=== PATIENT | male | born 1960 | race Caucasian/White ===

== ENCOUNTER 2017-11-06 18:01 | Emergency (ER) | payer BC, MEDICARE ==
--- OUTSIDE RECORDS SUMMARY | 2017-11-06 18:14 | XMS REPORT ---
:1960 External Reference #:[id number] Author Organization [facility] Address [address] [place] [address] Phone [phone] Care Team Providers Name Role Phone HCP given Primary Care Physician Unavailable Payers Type Date Identification Numbers Payment Provider Subscriber Commercial Policy Number: [id number] [place] Ind/Ppo/Hmo/Pos Brittaney Lewis Friday Group Number: [id number] [address] [address] PayID: [id number] BigelowRICARDO jones [id number] Problems Date Description Provider Status Onset: 07/26/2015 Essential hypertension Tristin Giron D.O. Active Onset: 07/26/2015 Generalized anxiety disorder Tristin Giron D.O. Active Onset: 07/26/2015 Neck pain Tristin Giron D.O. Active Onset: 07/26/2015 Migraine with typical aura Tristin Giron D.O. Active Onset: 07/26/2015 Angina pectoris Tristin Giron D.O. Active Onset: 07/26/2015 Chronic obstructive lung disease Tristin Giron D.O. Active Onset: 07/26/2015 Lipoprotein deficiency disorder Tristin Giron D.O. Active Onset: 07/26/2015 Insomnia Tristin Giron D.O. Active Onset: 10/11/2015 Low back pain Tristin Giron D.O. Active Onset: 10/11/2015 Abnormal gait Tristin Giron D.O. Active Onset: 10/11/2015 Impotence of organic origin Tristin Giron D.O. Active Family History Date Family Member(s) Problem(s) Comments Father due to complication annurism surgery () Father Hypertension Father Hypercholesterolemia Father Heart Problems Mother due to age 73 () Mother Alcoholism Mother Hypertension Mother Hypercholesterolemia Mother Heart Problems Siblings 3 Social History Type Date Description Comments Marital Status Cigarette Use Current Cigarette Smoker 1 Pack Daily ETOH Use Denies alcohol use Recreational Drug Use Former Drug User Smoking 08/23/2015 Patient is a current 38 years; currently smoker, smokes every day 1/2ppd. Was 1.5ppd; average 1 ppd=40 pack year history. Daily Caffeine Consumes on average 1 soda per day Exercise Type/Frequency Exercises sporadically Sun Exposure Does not use sunscreen Seat Belt/Car Seat Seat Belt Use - Yes Age 1st [place] 13 Years Old Sexual Hx text >10 partners in her lifetime. Allergies, Adverse Reactions, Alerts Date Description Reaction Status Severity Comments 07/26/2015 Imitrex active 07/26/2015 Cephalexin active nausea Medications Medication Date Status Form Strength Qnty SIG Indications Ordering Provider Hydrocodone-Ac 10/22/19 Active Tablets 10-325mg 180tabs 1 tab M54.2 Sopchak, etaminophen 18 every 4 Tristin, D.O. hours as needed for severe pain G43.109 Meloxicam 09/19/2017 Active Tablets 7.5mg 90tabs 1 by mouth M54.2 S[place]chak, every day Tristin, D.O. Aspirin Adult 07/30/[address] 81mg 90tabs 1 by mouth S[place]chak, Low Dose every day Tristin, D.O. Spiriva 07/24/2017 Active Aerosol 1.25mcg two Unknown Respimat /Act inhalations (5mcg) once daily (maximum: 2 inhalations per 24 hours). Ondansetron 06/06/2017 Active Tablets 4mg 10tabs 1-2 by mouth Sopchak, Dispers three times a Tristin, day as needed D.O. for nausea Ipratropium 05/13/2017 Active Solution 0.5-2.5 Inhale The Unknown [place] (3)mg/3 Contents Of 1 rol Sulfate ML Vial Via Nebulizer Q 6 H PRF SOB Breo Ellipta 04/30/2017 Active Aerosol 200-25m 90inh 1 puff once a J44.1 Sopchak, cg/Inh day; rinse Tristin, mouth after D.O. use Aerochamber 02/07/2017 Active Device 1units use as J44.9 Sopchak, Mini Aerosol directed Tristin, Chamber D.O. Tamsulosin HCL 08/06/2016 Active Capsules 0.4mg 90caps 1 By Mouth N40.0 Sopchak, Every Day Tristin, D.O. Bupropion HCL 07/08/2016 Active Tablets ER 100mg 90tabs 1 By Mouth S[place]chak, ER (SR) 12HR Every Day Tristin, D.O. Magnesium 04/29/2016 Active Tablets 1 -4 tablets Unknown daily and adjust dose as needed Nifedipine ER 04/05/2016 Active Tablets ER 90mg 90tabs Take 1 Tablet I10 Sopchak, 24HR By Mouth Tristin, Daily On An D.O. Empty Stomach For High Blood Pressure Iron 12/26/2015 Active Tablets 325(65F 90tabs 1 by mouth Sopchak, e) mg daily Tristin, D.O. Viagra 10/11/2015 Active Tablets 50mg 2tabs Take 1 tablet N52.9 Sopchak , by mouth Tristin, daily as D.O. needed for erectile dysfunction then Take 1 tablet by mouth daily as needed for erectile dysf Cialis 10/11/2015 Active Tablets 5mg 30tabs 1 by mouth N52.9 Sopchak, every day Tristin, D.O. Bystolic 08/12/2014 Active Tablets 10mg 90tabs 1 tablet by I10 Sopchak, mouth once Tristin, daily for D.O. high blood pressure G43.109 M99.01 Isosorbide Dinitrate 08/12/2014 Active Tablets 30mg 1 po daily I10 Unknown I20.9 Lorazepam 08/12/2014 Active Tablets 1mg 120tabs 1 tablet in the M99.01 Sopchak, morning, 1 Tristin, D.O. tablet in the afternoon, 2 tablet at bedtime Soma 08/12/2014 Active Tablets 350mg 90tabs 1 tab by mouth G43.109 Sopchak, three times Tristin, D.O. daily code d M54.2 G47.00 Trazodone HCL 08/12/2014 Active Tablets 100mg 180tabs 2 tabs by G47.00 Sopchak, mouth every Tristin, night at D.O. bedtime for sleep Allopurinol 08/12/2014 Active Tablets 300mg 90tabs Take 1 M10.9 Sopchak , Tablet By Tristin, Mouth Every D.O. Day as Directed, For Gout Prevention Lisinopril 08/12/2014 Active Tablets 40mg 90tabs Take One I10 Sopchak, Tablet By Tristin, Mouth Every D.O. Morning For High Blood Pressure Paxil 08/12/2014 Active Tablets 20mg 270tabs 3 By Mouth M99.01 Sopzainabk, Nightly Tristin, D.O. Proair HFA 08/12/2014 Active Aerosol 108(90B 8.5units 1-2 Puffs M99.01 Sopzainabk, ase) Four Times A Tristin, mcg/Act Day as D.O. Needed 4 Inhalers Of 8.5GM Each Atorvastatin Active Tablets 10mg Take One Unknown Calcium Tablet By Mouth Every Day Oxycodone HCL 10/07/2017 - Hx Tablets 10mg 45tabs 1 tablets by M54.2 Silcoff, 10/21/2017 mouth up to Lucas, three times M.D. a day as needed for severe pain G43.109 Tramadol HCL ER 09/19/2017 - Hx Tablets ER 100mg 30tabs 1 by M54.2 Sopchak, (Biphasic) 10/07/2017 24HR mouth Tristin, D.O. every day G43.109 Oxycodone HCL 07/25/2017 - Hx Tablets 10mg 6tabs take 1 to 2 Sopchak, 07/28/2017 tablets by Tristin, D.O. mouth every 6 hours for breakthrough pain maximum daily dose of 6 per day Prednisone 04/18/2017 - Hx Tablets 10mg 10tabs 2 tabs for 3 J44 Sopchak , 04/25/2017 days then 1 tab .1 Tristin, D.O. for 4 days Azithromycin 04/18/2017 - Hx Tablets 250mg 6tabs take 2 tablets J44 Sopchak, 04/23/2017 by mouth one .1 Tristin, D.O. time on the first day then take 1 tablet by mouth daily for 4 days Hydrocodone-Acet 10/15/2016 - Hx Tablets 10-325m 180tabs 1 tab every 4 M54 Sopzainabk, aminophen 09/19/2017 g hours as needed .2 Tristin, D.O. for severe pain G43.109 Gabapentin 09/30/2016 - Hx Capsules 100mg 90caps 1 tabs by M54.17 Mack, 12/16/2016 mouth Tristin, D.O. three times a day Oxycodone-Acet 09/30/2016 - Hx Tablets 10-325mg 120tabs 1 by mouth M54.2 Sopzainabk, aminophen 10/15/2016 every 8 Tristin, D.O. hours as needed G43.109 Colcrys 09/13/2016 - Hx Tablets 0.6mg 60tabs take 2 M10.071 Sopzainabk, 09/30/2016 immediately Tristin, then 1 1 hour D.O. later. then next day take 1 twice a day. Buspirone 10/25/2015 - Hx Tablets 7.5mg 60tabs 1 cap by M99.01 Mack, HCL 05/25/2016 mouth twice a Tristin, day D.O. Bupropion 10/10/2015 - Hx Tablets ER 100mg 90tabs 1 by mouth Mack, HCL ER (SR) 12/12/2015 12HR every day Tristin, D.O. Hydrocodone- 12/07/2014 - Hx Tablets 10-325mg 120tabs 1 by mouth M54.2 Mack, Acetaminophe 09/30/2016 four-5 times Tristin, n a day as D.O. needed for chronic pain G43.109 Nifedipine ER 08/12/2014 - Hx Tablets ER 90mg 90tabs 1qd-take one I10 Rachelk, Osmotic 04/05/2016 24HR tablet by Tristin, D.O. Release mouth every day Simvastatin 08/12/2014 - Hx Tablets 40mg take one E78.6 Unknown 12/12/2015 tablet by mouth every day for high cholesterol Symbicort 08/12/2014 - Hx Aerosol 160-4.5 30.6gm inhale 2 puffs M99.01 Mack, 04/30/2017 mcg/Act by mouth twice Tristin, D.O. a day gargle after use Wellbutrin SR 08/12/2014 - Hx Tablets ER 100mg 30tabs 1 by mouth Rachelk, 10/10/2015 12HR daily Tristin, D.O. Medications Administered in Office Medication Date Status Form Strength Qnty SIG Indications Ordering Provider Toradol 15MG. Administered Injection Hektor, 018 MICHELLE Marte SC/Im Administered Injection Hektor, Injections 018 MICHELLE Marte Toradol 15MG. Administered Injection Sopchak, 018 Tristin, D.O. SC/Im Administered Injection Sopchak, Injections 018 Tristin, D.O. Immunizations CPT Code Status Date Vaccine Lot # [id number] Given 12/17/2016 Influenza Virus Vaccine, Quadrivalent, Split, [id number] Preservative Free [id number] Given 12/26/2015 Influenza Virus Vaccine, Quadrivalent, Split, [id number] Preservative Free Vital Signs Date Vital Result Comment 10/21/2017 BP Systolic 142 mmHg BP Diastolic 82 mmHg 10/07/2017 BP Systolic 142 mmHg BP Diastolic 78 mmHg Weight 215.00 lb 09/19/2017 BP Systolic 140 mmHg BP Diastolic 80 mmHg Weight 206.00 lb 07/30/2017 BP Systolic 128 mmHg BP Diastolic 80 mmHg Weight 209.00 lb with sneakers 07/25/2017 BP Systolic 122 mmHg BP Diastolic 68 mmHg Weight 213.00 lb 06/06/2017 BP Systolic 124 mmHg BP Diastolic 80 mmHg Weight 218.00 lb with sneakers 04/30/2017 BP Systolic 114 mmHg BP Diastolic 74 mmHg Weight 207.00 lb 04/18/2017 BP Systolic 98 mmHg BP Diastolic 52 mmHg BP Systolic Recheck 98 mmHg w/automatic cuff BP Diastolic Recheck 45 mmHg w/automatic cuff Heart Rate 88 /min Body Temperature 98.5 F Weight 215.00 lb with sneakers 02/14/2017 BP Systolic 130 mmHg BP Diastolic 82 mmHg Height 71 inches 5'11" with shoes Weight 211.00 lb with shoes BMI (Body Mass Index) 29.4 kg/m2 12/17/2016 BP Systolic 142 mmHg BP Diastolic 88 mmHg Weight 208.00 lb with sneakers 11/01/2016 BP Systolic 138 mmHg BP Diastolic 82 mmHg Weight 207.00 lb w/shoes 09/30/2016 BP Systolic 168 mmHg BP Diastolic 90 mmHg Weight 207.50 lb 09/13/2016 BP Systolic 122 mmHg BP Diastolic 60 mmHg Weight 214.00 lb with shoes 08/06/2016 BP Systolic 150 mmHg BP Diastolic 80 mmHg Weight 216.00 lb 07/23/2016 BP Systolic 130 mmHg BP Diastolic 88 mmHg Height 71.75 inches 5'11.75" w/shoes Weight 204.00 lb w/shoes BMI (Body Mass Index) 27.9 kg/m2 06/11/2016 BP Systolic 120 mmHg BP Diastolic 54 mmHg Weight 216.00 lb 04/30/2016 BP Systolic 138 mmHg BP Diastolic 78 mmHg Weight 202.00 lb w/shoes 02/07/2016 BP Systolic 144 mmHg BP Diastolic 71 mmHg Heart Rate 83 /min Height 72 inches 6'0" w/shoes Weight 209.00 lb w/shoes BMI (Body Mass Index) 28.3 kg/m2 12/26/2015 BP Systolic 119 mmHg BP Diastolic 71 mmHg Heart Rate 76 /min Weight 207.00 lb with sneakers 10/25/2015 BP Systolic 112 mmHg BP Diastolic 60 mmHg 10/11/2015 BP Systolic 138 mmHg BP Diastolic 90 mmHg Weight 194.00 lb with sneakers 08/23/2015 BP Systolic 106 mmHg BP Diastolic 66 mmHg Heart Rate 70 /min 07/26/2015 BP Systolic 134 mmHg BP Diastolic 88 mmHg Height 72.25 inches 6'0.25" with sneakers Weight 192.00 lb with sneakers BMI (Body Mass Index) 25.9 kg/m2 Results Test Date Test Result H/L Range Note Slide Review 05/02/2017 Slide Review (SEE NOTE) 1, 2 Blood Culture 05/02/2017 Blood Culture Aerobic NO GROWTH: FINAL <SEE 1 , 3 NOTE> Blood Culture Anaerobic NO GROWTH: FINAL <SEE NOTE> 1, 4 Protime 05/02/2017 Protime 11.7 seconds Low 12.0-14.4 1 Inr 0.9 0.9-1.1 1, 5 Blood Culture 05/02/2017 Blood Culture Aerobic NO GROWTH: FINAL <SEE NOTE> 1, 6 Blood Culture Anaerobic NO GROWTH: FINAL <SEE NOTE> 1, 7 Ua RFX Micro & Culture II 05/02/2017 Urine Color YELLOW Yellow 1 Urine Clarity CLEAR Clear 1 Urine Glucose - Dipstick NEGATIVE mg/dL Negative 1 Urine Bilirubin - Dipstick NEGATIVE Negative 1 Urine Ketone TRACE mg/dL High Negative 1 Urine Specific [place] 1.025 1.010-1.030 1 Urine Blood NEGATIVE Negative 1 Urine PH 6.0 Low 6.5-7.5 1 Urine Protein - Dipstick TRACE mg/dL Negative 1 Urine Urobilinogen - Dipstick 0.2 E.U./dL 0.2-1.0 1 Urine Nitrite - Dipstick NEGATIVE Negative 1 Urine Leuk Esterase NEGATIVE Negative 1 Source: URINE, CLEAN CAT <SEE NOTE> 1, 8 Comprehensive Metabolic Panel 05/02/2017 Glucose 92 mg/dL 74-106 1 BUN 25 mg/dL High 7-18 1 Creatinine 1.0 mg/dL 0.6-1.3 1 Glom Filtration Rate, Estimate >60 mL/min >60 1 If >60 mL/min >60 1, 9 BUN/Creat 25.0 ratio 1 Sodium 142 mmol/L 136-145 1 Potassium 4.4 mmol/L 3.5-5.1 1 Chloride 109 mmol/L High 98-107 1 Carbon Dioxide 26 mmol/L 21-32 1 Anion Gap 7 mEq/L Low 8-16 1 Calcium 8.7 mg/dL 8.5-10.1 1 Total Protein 6.3 g/dL Low 6.4-8.2 1 Albumin 3.1 g/dL Low 3.4-5.0 1 Globulin 3.2 g/dL 1.9-4.3 1 Alb/Glob 1.0 ratio 1 Bilirubin,Total 0.1 mg/dL Low 0.2-1.0 1 Sgot/Ast 8 U/L Low 15-37 1, 10 SGPT/Alt 22 U/L 12-78 1 Alkaline Phosphatase 75 U/L 45-117 1 Laboratory test finding 05/02/2017 Lipase 183 U/L 56-289 1 CBS W/Automated Diff 05/02/2017 White Blood Count 12.1 K/uL High 3.4-10.5 1 Red Blood Count 4.12 M/uL Low 4.20-5.80 1 Hemoglobin 12.8 gm/dL 12.8-17.0 1 Hematocrit 39.9 % 38.0-48.0 1 Mean Cell Volume 96.8 fl High 80.0-96.0 1, 11 Mean Corpuscular HGB 31.1 pg 27.0-33.0 1 Mean Corpuscular HGB Conc 32.1 g/dL 31.7-36.0 1 Platelet Count 374 K/uL High 155-360 1 Red Cell Distri Width SD 53.1 fl High 36-51 1 Red Cell Distri Width %CV 15.4 % 11.6-15.8 1 Mean Platelet Volume 9.6 fL 6.6-10.6 1 Neut% 72.7 % 33.0-73.0 1 Lymph % 15.5 % Low 20.0-42.0 1 [place] % 10.8 % High 0.0-10.0 1 Eo% 0.9 % 0.0-6.6 1 Bas% 0.1 % 0.0-1.1 1 Neut# 8.77 K/uL High 1.8-7.0 1 Lymph # 1.87 K/uL 1.0-4.0 1 [place] # 1.30 K/uL High 0.0-0.8 1 Eos # 0.11 K/uL 0.0-0.5 1 Baso # 0.01 K/uL 0.0-0.1 1 Lactic Acid 05/02/2017 Lactic Acid 0.9 mmol/L 0.4-1.9 1 Lab Reflex >2.0 for Sepsis? Y 1 Ua RFX Micro & Culture II 04/29/2017 Urine Color YELLOW Yellow 12 Urine Clarity CLEAR Clear 12 Urine Glucose - Dipstick NEGATIVE mg/dL Negative 12 Urine Bilirubin - Dipstick NEGATIVE Negative 12 Urine Ketone NEGATIVE mg/dL Negative 12 Urine Specific [place] 1.025 1.010-1.030 12 Urine Blood NEGATIVE Negative 12 Urine PH 5.5 Low 6.5-7.5 12 Urine Protein - Dipstick TRACE mg/dL Negative 12 Urine Urobilinogen - Dipstick 0.2 E.U./dL 0.2-1.0 12 Urine Nitrite - Dipstick NEGATIVE Negative 12 Urine Leuk Esterase NEGATIVE Negative 12 Source: URINE, CLEAN CAT <SEE NOTE> 12, 13 Arterial Blood Gas 04/20/2017 Arterial Blood Gas pH 7.37 7.35-7.45 14 Arterial Blood Gas Pco2 44 mmHg 35-45 14 Arterial Blood Gas Po2 67 mmHg Low 80-105 14 ABG Hco3 25 mEq/L 22-26 14 ABG Base Excess -1 mEq/L -2-2 14 ABG O2 Saturation 94 % 90-99 14 Allens Test Performed? YES 14 Arterial Blood Gas Type ROOM AIR 14 Arterial Blood Gas Fio2 21 % 20-101 14 Arterial Blood Gas Site R.RAD.ART. 14 Influenza A/B Antigen 04/20/2017 Influenza A Antigen Negative (Negative) 14 Influenza B Antigen Negative (Negative) 14, 15 Legionella Culture 04/20/2017 Legionella Culture No Legionella sp 14, 16 <SEE NOTE> Laboratory test 04/20/2017 Legionella Urinary Negative Negative 14, 17 finding Antigen Blood Culture 04/20/2017 Blood Culture NO GROWTH: FINAL 18, 19 Aerobic <SEE NOTE> Blood Culture Anaerobic NO GROWTH: FINAL <SEE NOTE> 18, 20 Arterial Blood Gas 04/19/2017 Arterial Blood Gas pH 7.29 Low 7.35-7.45 21 Arterial Blood Gas Pco2 53 mmHg High 35-45 21 Arterial Blood Gas Po2 142 mmHg High 80-105 21 ABG Hco3 25 mEq/L 22-26 21 ABG Base Excess -2 mEq/L -2-2 21 ABG O2 Saturation 99 % 90-99 21 Allens Test Performed? YES 21 Arterial Blood Gas Type OXYGEN 21 Arterial Blood Gas L/M 4 L/MIN 0-20 21 Arterial Blood Gas Del. OXYMASK 21 Arterial Blood Gas Site L.RAD.ART. 21 Comprehensive Metabolic Panel 04/19/2017 Glucose 133 mg/dL High 74-106 22 BUN 32 mg/dL High 7-18 22 Creatinine 1.3 mg/dL 0.6-1.3 22 Glom Filtration Rate, Estimate 60 mL/min >60 22 If >60 mL/min >60 22, 23 BUN/Creat 24.6 ratio 22 Sodium 134 mmol/L Low 136-145 22 Potassium 4.1 mmol/L 3.5-5.1 22 Chloride 100 mmol/L 98-107 22 Carbon Dioxide 27 mmol/L 21-32 22 Anion Gap 7 mEq/L Low 8-16 22 Calcium 8.9 mg/dL 8.5-10.1 22 Total Protein 7.9 g/dL 6.4-8.2 22 Albumin 3.2 g/dL Low 3.4-5.0 22 Globulin 4.7 g/dL High 1.9-4.3 22 Alb/Glob 0.7 ratio 22 Bilirubin,Total 0.2 mg/dL 0.2-1.0 22 Sgot/Ast 18 U/L 15-37 22 SGPT/Alt 24 U/L 12-78 22 Alkaline Phosphatase 112 U/L 45-117 22 Laboratory test finding 04/19/2017 CK 190 U/L 39-308 22 Troponin-I 0.023 ng/mL 22, 24 CBS W/Automated Diff 04/19/2017 White Blood Count 11.4 K/uL High 3.4-10.5 22 Red Blood Count 4.32 M/uL 4.20-5.80 22 Hemoglobin 13.4 gm/dL 12.8-17.0 22 Hematocrit 40.7 % 38.0-48.0 22 Mean Cell Volume 94.2 fl 80.0-96.0 22 Mean Corpuscular HGB 31.0 pg 27.0-33.0 22 Mean Corpuscular HGB Conc 32.9 g/dL 31.7-36.0 22 Platelet Count 253 K/uL 155-360 22 Red Cell Distri Width SD 47.6 fl 36-51 22 Red Cell Distri Width %CV 14.3 % 11.6-15.8 22 Mean Platelet Volume 9.5 fL 6.6-10.6 22 Neut% 86.1 % High 33.0-73.0 22 Lymph % 4.6 % Low 20.0-42.0 22 [place] % 9.2 % 0.0-10.0 22 Eo% 0.0 % 0.0-6.6 22 Bas% 0.1 % 0.0-1.1 22 Neut# 9.81 K/uL High 1.8-7.0 22 Lymph # 0.53 K/uL Low 1.0-4.0 22 [place] # 1.05 K/uL High 0.0-0.8 22 Eos # 0.00 K/uL 0.0-0.5 22 Baso # 0.01 K/uL 0.0-0.1 22 Slide Review 04/19/2017 Slide Review (SEE NOTE) 22, 25 Lactic Acid 04/19/2017 Lactic Acid 0.9 mmol/L 0.4-1.9 22 Lab Reflex >2.0 for Sepsis? Y 22 CBS W/Automated Diff 12/01/2016 White Blood Count 7.7 K/uL 3.4-10.5 26 Red Blood Count 4.49 M/uL 4.20-5.80 26 Hemoglobin 14.4 gm/dL 12.8-17.0 26 Hematocrit 42.5 % 38.0-48.0 26 Mean Cell Volume 94.7 fl 80.0-96.0 26 Mean Corpuscular HGB 32.1 pg 27.0-33.0 26 Mean Corpuscular HGB Conc 33.9 g/dL 31.7-36.0 26 Platelet Count 172 K/uL 150-400 26 Red Cell Distri Width SD 48.2 fl 36-51 26 Red Cell Distri Width %CV 14.5 % 11.6-15.8 26 Mean Platelet Volume 10.2 fL 6.6-10.6 26 Neut% 70.6 % 33.0-73.0 26 Lymph % 20.5 % 20.0-42.0 26 [place] % 6.9 % 0.0-10.0 26 Eo% 1.6 % 0.0-6.6 26 Bas% 0.4 % 0.0-1.1 26 Neut# 5.40 K/uL 1.8-7.0 26 Lymph # 1.57 K/uL 1.0-4.0 26 [place] # 0.53 K/uL 0.0-0.8 26 Eos # 0.12 K/uL 0.0-0.5 26 Baso # 0.03 K/uL 0.0-0.1 26 Urine Drug Screen Inhouse 09/30/2016 Ua Cocaine - Ua Opiates - Ua Amphetamines - Urine Methanphetamines - Urine Benzodiazepines QN [place] + Urine Oxycodone QL - Laboratory test finding 09/19/2016 Uric Acid 3.9 mg/dL Low 4.4-7.6 CBC Auto Diff 09/19/2016 White Blood Count 10.0 10^3/uL 3.5-10.8 Red Blood Count 4.83 10^6/uL 4.0-5.4 Hemoglobin 15.1 g/dL 14.0-18.0 Hematocrit 46 % 42-52 Mean Corpuscular Volume 95 fL High 80-94 Mean Corpuscular Hemoglobin 31 pg 27-31 Mean Corpuscular HGB Conc 33 g/dL 31-36 Red Cell Distribution Width 16 % High 10.5-15 Platelet Count 207 10^3/uL 150-450 Mean Platelet Volume 9 um3 7.4-10.4 Abs Neutrophils 7.0 10^3/uL 1.5-7.7 Abs Lymphocytes 1.9 10^3/uL 1.0-4.8 Abs Monocytes 0.8 10^3/uL 0-0.8 Abs Eosinophils 0.2 10^3/uL 0-0.6 Abs Basophils 0.1 10^3/uL 0-0.2 Abs Nucleated RBC 0 10^3/uL Granulocyte % 70.0 % 38-83 Lymphocyte % 19.3 % Low 25-47 Monocyte % 7.9 % 1-9 Eosinophil % 1.7 % 0-6 Basophil % 1.1 % 0-2 Nucleated Red Blood Cells % 0 Laboratory test finding 09/19/2016 C Reactive Protein 1.28 mg/L < 5.00 27 Erythrocyte Sed Rate 18 mm/Hr 0-20 Comprehensive Metabolic Panel 07/31/2016 Glucose 117 mg/dL High 74-106 28 BUN 9 mg/dL 7-18 28 Creatinine 1.3 mg/dL 0.6-1.3 28 Glom Filtration Rate, Estimate 60 mL/min >60 28 If >60 mL/min >60 28, 29 BUN/Creat 6.9 ratio 28 Sodium 142 mmol/L 136-145 28 Potassium 3.7 mmol/L 3.5-5.1 28 Chloride 107 mmol/L 98-107 28 Carbon Dioxide 28 mmol/L 21-32 28 Anion Gap 7 mEq/L Low 8-16 28 Calcium 8.3 mg/dL Low 8.5-10.1 28 Total Protein 7.2 g/dL 6.4-8.2 28 Albumin 3.8 g/dL 3.4-5.0 28 Globulin 3.4 g/dL 1.9-4.3 28 Alb/Glob 1.1 ratio 28 Bilirubin,Total 0.2 mg/dL 0.2-1.0 28 Sgot/Ast 8 U/L Low 15-37 28, 30 SGPT/Alt 19 U/L 12-78 28 Alkaline Phosphatase 101 U/L 45-117 28 Laboratory test finding 07/31/2016 CK 72 U/L 39-308 28 Troponin-I < 0.015 ng/mL 28, 31 CBS W/Automated Diff 07/31/2016 White Blood Count 10.7 K/uL High 3.4-10.5 28 Red Blood Count 4.42 M/uL 4.20-5.80 28 Hemoglobin 14.3 gm/dL 12.8-17.0 28 Hematocrit 41.1 % 38.0-48.0 28 Mean Cell Volume 93.0 fl 80.0-96.0 28 Mean Corpuscular HGB 32.4 pg 27.0-33.0 28 Mean Corpuscular HGB Conc 34.8 g/dL 31.7-36.0 28 Platelet Count 276 K/uL 150-400 28 Red Cell Distri Width SD 48.5 fl 36-51 28 Red Cell Distri Width %CV 14.6 % 11.6-15.8 28 Mean Platelet Volume 9.6 fL 6.6-10.6 28 Neut% 71.7 % 33.0-73.0 28 Lymph % 17.9 % Low 20.0-42.0 28 [place] % 7.5 % 0.0-10.0 28 Eo% 2.6 % 0.0-6.6 28 Bas% 0.3 % 0.0-1.1 28 Neut# 7.64 K/uL High 1.8-7.0 28 Lymph # 1.91 K/uL 1.0-4.0 28 [place] # 0.80 K/uL 0.0-0.8 28 Eos # 0.28 K/uL 0.0-0.5 28 Baso # 0.03 K/uL 0.0-0.1 28 Slide Review 07/31/2016 Slide Review (SEE NOTE) 28, 32 Laboratory test finding 07/31/2016 NT-proBNP 205.0 pg/mL High <125 28 Connective Tissue Panel 06/14/2016 Anti-Nuclear Antibody 0.8 U 33 Cyclic Citrullinated Peptide <15.6 U 34 Interpretation See Comment 35 Laboratory test finding 06/14/2016 Rheumatoid Factor <15 IU/mL <15 36 Erythrocyte Sed Rate 10 mm/Hr 0-20 C Reactive Protein < 1.00 mg/L < 5.00 37 CBC Auto Diff 06/14/2016 White Blood Count 7.2 10^3/uL 3.5-10.8 Red Blood Count 4.61 10^6/uL 4.0-5.4 Hemoglobin 14.3 g/dL 14.0-18.0 Hematocrit 43 % 42-52 Mean Corpuscular Volume 94 fL 80-94 Mean Corpuscular Hemoglobin 31 pg 27-31 Mean Corpuscular HGB Conc 33 g/dL 31-36 Red Cell Distribution Width 15 % 10.5-15 Platelet Count 201 10^3/uL 150-450 Mean Platelet Volume 9 um3 7.4-10.4 Abs Neutrophils 5.3 10^3/uL 1.5-7.7 Abs Lymphocytes 1.1 10^3/uL 1.0-4.8 Abs Monocytes 0.5 10^3/uL 0-0.8 Abs Eosinophils 0.1 10^3/uL 0-0.6 Abs Basophils 0.1 10^3/uL 0-0.2 Abs Nucleated RBC 0.01 10^3/uL Granulocyte % 74.5 % 38-83 Lymphocyte % 15.7 % Low 25-47 Monocyte % 7.2 % 1-9 Eosinophil % 1.5 % 0-6 Basophil % 1.1 % 0-2 Nucleated Red Blood Cells % 0.1 Comp Metabolic Panel 06/14/2016 Sodium 138 mmol/L 133-145 Potassium 4.7 mmol/L 3.5-5.0 Chloride 101 mmol/L 101-111 Co2 Carbon Dioxide 32 mmol/L 22-32 Anion Gap 5 mmol/L 2-11 Glucose 109 mg/dL High 70-100 Blood Urea Nitrogen 22 mg/dL 6-24 Creatinine 1.17 mg/dL 0.67-1.17 BUN/Creatinine Ratio 18.8 8-20 Calcium 9.6 mg/dL 8.6-10.3 Total Protein 6.6 g/dL 6.4-8.9 Albumin 4.1 g/dL 3.2-5.2 Globulin 2.5 g/dL 2-4 Albumin/Globulin Ratio 1.6 1-3 Total Bilirubin 0.20 mg/dL 0.2-1.0 Alkaline Phosphatase 83 U/L 34-104 Alt 15 U/L 7-52 Ast 13 U/L 13-39 Egfr Non- 64.3 >60 Egfr 82.6 >60 38 Laboratory test finding 01/15/2016 Point of Care Glucose 120 mg/dL High 74 -106 39 Laboratory test finding 10/25/2015 Ferritin 41.0 ng/mL 24-336 Iron & Iron Binding 10/25/2015 Iron 47 g/dL Low 50-212 Capacity Unsaturated Iron Binding 293 g/dL Total Iron Binding Capacity 340 g/dL 250-450 % Iron Saturation 14 % Low 15-55 Retic Count 10/25/2015 Retic Count 1.3 % 0.5-1.5 Corrected Retic Count 1.2 % 0.5-1.5 Maturation Factor Retic 1.0 Retic Index 1.20 Mean Retic Volume 116.3 Immature Retic Fraction 0.46 RBC Retic Count 4.14 10^6/uL Low 4.6-6.2 Hematocrit for Retic CNT 40 % Low 42-52 Laboratory test finding 10/25/2015 Magnesium 2.1 mg/dL 1.9-2.7 CBC Auto Diff 10/25/2015 White Blood Count 6.4 10^3/uL 3.5-10.8 Red Blood Count 4.14 10^6/uL 4.0-5.4 Hemoglobin 13.3 g/dL Low 14.0-18.0 Hematocrit 40 % Low 42-52 Mean Corpuscular Volume 98 fL High 80-94 Mean Corpuscular Hemoglobin 32 pg High 27-31 Mean Corpuscular HGB Conc 33 g/dL 31-36 Red Cell Distribution Width 14 % 10.5-15 Platelet Count 191 10^3/uL 150-450 Mean Platelet Volume 9 um3 7.4-10.4 Abs Neutrophils 3.9 10^3/uL 1.5-7.7 Abs Lymphocytes 1.6 10^3/uL 1.0-4.8 Abs Monocytes 0.7 10^3/uL 0-0.8 Abs Eosinophils 0.1 10^3/uL 0-0.6 Abs Basophils 0.1 10^3/uL 0-0.2 Abs Nucleated RBC 0.03 10^3/uL Granulocyte % 60.6 % 38-83 Lymphocyte % 25.0 % 25-47 Monocyte % 11.1 % High 1-9 Eosinophil % 2.3 % 0-6 Basophil % 1.0 % 0-2 Nucleated Red Blood Cells % 0.4 Comp Metabolic Panel 10/25/2015 Sodium 137 mmol/L 133-145 Potassium 5.1 mmol/L High 3.5-5.0 Chloride 104 mmol/L 101-111 Co2 Carbon Dioxide 28 mmol/L 22-32 Anion Gap 5 mmol/L 2-11 Glucose 86 mg/dL 70-100 Blood Urea Nitrogen 10 mg/dL 6-24 Creatinine 0.95 mg/dL 0.67-1.17 BUN/Creatinine Ratio 10.5 8-20 Calcium 8.6 mg/dL 8.6-10.3 Total Protein 6.5 g/dL 6.4-8.9 Albumin 3.9 g/dL 3.2-5.2 Globulin 2.6 g/dL 2-4 Albumin/Globulin Ratio 1.5 1-3 Total Bilirubin 0.30 mg/dL 0.2-1.0 Alkaline Phosphatase 91 U/L 34-104 Alt 10 U/L 7-52 Ast 9 U/L Low 13-39 Egfr Non- 82.0 >60 Egfr 105.5 >60 40 Laboratory test finding 10/25/2015 Vitamin D Total 25(Oh) 34.0 ng/mL 30- 50 Comp Metabolic Panel 08/23/2015 Sodium 138 mmol/L 133-145 Potassium 4.3 mmol/L 3.5-5.0 Chloride 108 mmol/L 101-111 Co2 Carbon Dioxide 24 mmol/L 22-32 Anion Gap 6 mmol/L 2-11 Glucose 102 mg/dL High 70-100 Blood Urea Nitrogen 14 mg/dL 6-24 Creatinine 1.08 mg/dL 0.67-1.17 BUN/Creatinine Ratio 13.0 8-20 Calcium 9.0 mg/dL 8.6-10.3 Total Protein 6.4 g/dL 6.4-8.9 Albumin 4.2 g/dL 3.2-5.2 Globulin 2.2 g/dL 2-4 Albumin/Globulin Ratio 1.9 1-3 Total Bilirubin 0.30 mg/dL 0.2-1.0 Alkaline Phosphatase 94 U/L 34-104 Alt 9 U/L 7-52 Ast 9 U/L Low 13-39 Egfr Non- 70.7 >60 Egfr 91.0 >60 41 CBC Auto Diff 08/23/2015 White Blood Count 5.6 10^3/uL 3.5-10.8 Red Blood Count 3.66 10^6/uL Low 4.0-5.4 Hemoglobin 12.3 g/dL Low 14.0-18.0 Hematocrit 37 % Low 42-52 Mean Corpuscular Volume 102 fL High 80-94 Mean Corpuscular Hemoglobin 34 pg High 27-31 Mean Corpuscular HGB Conc 33 g/dL 31-36 Red Cell Distribution Width 15 % 10.5-15 Platelet Count 216 10^3/uL 150-450 Mean Platelet Volume 9 um3 7.4-10.4 Abs Neutrophils 4.0 10^3/uL 1.5-7.7 Abs Lymphocytes 1.1 10^3/uL 1.0-4.8 Abs Monocytes 0.4 10^3/uL 0-0.8 Abs Eosinophils 0.1 10^3/uL 0-0.6 Abs Basophils 0.1 10^3/uL 0-0.2 Abs Nucleated RBC 0.01 10^3/uL Granulocyte % 70.2 % 38-83 Lymphocyte % 19.6 % Low 25-47 Monocyte % 7.5 % 1-9 Eosinophil % 1.2 % 0-6 Basophil % 1.5 % 0-2 Nucleated Red Blood Cells % 0.2 Laboratory test finding 08/23/2015 TSH (Thyroid Stim Horm) 0.53 ?IU/mL 0.34-5.60 Vitamin B12 517 pg/mL 180-914 42 Vitamin D Total 25(Oh) 25.0 ng/mL Low 30-50 Magnesium 2.0 mg/dL 1.9-2.7 Hepatitis C Antibody Nonreactive Nonreactive HIV 1/2 AB Evaluation 08/23/2015 HIV 1 2 Antibody Nonreactive Nonreactive 43 1 LOWER ABD PAIN, FEVER 2 Instrument flagged sample for slide review. Less than 10% Bands seen, no other immature WBC's seen. RBC morphology essentially normal. Platelet estimate=NORMAL 3 NO GROWTH: FINAL REPORT 4 NO GROWTH: FINAL REPORT 5 THERAPEUTIC INR RANGE: 2.0 - 3.0 DVT, Pulmonary embolus, prophylaxis against venous thrombosis or systemic embolization in high risk patients. 2.5 - 3.5 Mechanical heart valves 6 NO GROWTH: FINAL REPORT 7 NO GROWTH: FINAL REPORT 8 URINE, CLEAN CATCH 9 Note: Persistent reduction for 3 months or more in an eGFR <60 mL/min/1.73 m2 defines CKD. Patients with eGFR values >/=60 mL/min/1.73 m2 may also have CKD if evidence of persistent proteinuria is present. The original MDRD equation for estimated GFR is not valid for patients less than 18 years of age. Additional information may be found at www.kdoqi.org. 10 Values below the stated reference ranges of AST and ALT can be seen in normal populations. Clinical correlation is suggested. 11 Result confirmed by repeat analysis. 12 SEVERE ABD PAIN, HEADACHE 13 URINE, CLEAN CATCH 14 COPD EXAC,PNEUMONIA,LLL 15 Please Note: A POSITIVE result for influenza A and/or B antigen does not rule out a co-infection with other pathogens or identify any specific influenza A virus subtype. A NEGATIVE result for influenza A and/or B antigen does not preclude influenza virus infection and should not be the sole basis for treatment or other management decisions, since the antigen present in the specimen may be below the detection limit of the test. A NEGATIVE result is PRESUMPTIVE and it is recommended these results be confirmed by virus culture or an FDA-cleared influenza A and B molecular assay. Method: BD NewHounditor Chromatographic immunoassay 16 No Legionella species isolated. Performed at: [facility] [id number] [employer]el [employer] Specialist: Yeimi Lin MD, Phone: [phone] 17 Presumptive negative for L. pneumophila serogroup 1 antigen in urine, suggesting no recent or current infection. Legionnaires' disease cannot be ruled out since other serogroups and species may also cause disease. 18 COPD EXAC, PNEUMONIA LLL 19 NO GROWTH: FINAL REPORT 20 NO GROWTH: FINAL REPORT 21 SOB COPD EXAC,PNEUMONIA,LLL 22 SOB 23 Note: Persistent reduction for 3 months or more in an eGFR <60 mL/min/1.73 m2 defines CKD. Patients with eGFR values >/=60 mL/min/1.73 m2 may also have CKD if evidence of persistent proteinuria is present. The original MDRD equation for estimated GFR is not valid for patients less than 18 years of age. Additional information may be found at www.[email or web address]. 24 0.0 - 0.045 ng/mL: Normal 0.046 - 0.5 ng/mL: Suggestive 0.6 - 1.5 ng/mL: Consistent 25 Instrument flagged sample for slide review. Less than 10% Bands seen, no other immature WBC's seen. RBC morphology essentially normal. Platelet estimate=NORMAL 26 CP 27 Acute inflammation: >10.00 28 CHEST PAIN, JAW PAIN, DIARRHEA, VOMITING 29 Note: Persistent reduction for 3 months or more in an eGFR <60 mL/min/1.73 m2 defines CKD. Patients with eGFR values >/=60 mL/min/1.73 m2 may also have CKD if evidence of persistent proteinuria is present. The original MDRD equation for estimated GFR is not valid for patients less than 18 years of age. Additional information may be found at www.kdoqi.org. 30 Values below the stated reference ranges of AST and ALT can be seen in normal populations. Clinical correlation is suggested. 31 0.0 - 0.045 ng/mL: Normal 0.046 - 0.5 ng/mL: Suggestive 0.6 - 1.5 ng/mL: Consistent 32 Instrument flagged sample for slide review. Less than 10% Bands seen, no other immature WBC's seen. RBC morphology essentially normal. Platelet estimate=NORMAL 33 REFERENCE VALUE <=1.0 (Negative) 34 REFERENCE VALUE <20.0 (Negative) 35 Tests for antibodies to dsDNA and YESSY antigens are not performed automatically unless the YARELIS result is > or= 3.0 U. Studies performed at [facility] indicate that positive YARELIS results <3.0 U are rarely accompanied by positive second order tests. Test Performed by: [place] [address] Biology Internship: Aramis Gonzalez II, M.D., Ph.D. 36 Test Performed by: [place] [address] Biology Internship: Aramis Gonzalez II, M.D., Ph.D. 37 Acute inflammation: >10.00 38 Because ethnic data is not always readily available, this report includes an eGFR for both -Americans and non- Americans. The National Kidney Disease Education Program (NKDEP) does not endorse the use of the MDRD equation for patients that are not between the ages of 18 and 70, are , have extremes of body size, muscle mass, or nutritional status, or are non- or non-. According to the National Kidney Foundation, irrespective of diagnosis, the stage of the disease is based on the level of kidney function: Stage Description GFR(mL/min/1.73 m(2)) 1 Kidney damage with normal or decreased GFR 90 2 Kidney damage with mild decrease in GFR 60-89 3 Moderate decrease in GFR 30-59 4 Severe decrease in GFR 15-29 5 Kidney failure <15 (or dialysis) 39 Invasive Cardiologist: [id number] LIZA TY 40 Because ethnic data is not always readily available, this report includes an eGFR for both -Americans and non- Americans. The National Kidney Disease Education Program (NKDEP) does not endorse the use of the MDRD equation for patients that are not between the ages of 18 and 70, are , have extremes of body size, muscle mass, or nutritional status, or are non- or non-. According to the National Kidney Foundation, irrespective of diagnosis, the stage of the disease is based on the level of kidney function: Stage Description GFR(mL/min/1.73 m(2)) 1 Kidney damage with normal or decreased GFR 90 2 Kidney damage with mild decrease in GFR 60-89 3 Moderate decrease in GFR 30-59 4 Severe decrease in GFR 15-29 5 Kidney failure <15 (or dialysis) 41 Because ethnic data is not always readily available, this report includes an eGFR for both -Americans and non- Americans. The National Kidney Disease Education Program (NKDEP) does not endorse the use of the MDRD equation for patients that are not between the ages of 18 and 70, are , have extremes of body size, muscle mass, or nutritional status, or are non- or non-. According to the National Kidney Foundation, irrespective of diagnosis, the stage of the disease is based on the level of kidney function: Stage Description GFR(mL/min/1.73 m(2)) 1 Kidney damage with normal or decreased GFR 90 2 Kidney damage with mild decrease in GFR 60-89 3 Moderate decrease in GFR 30-59 4 Severe decrease in GFR 15-29 5 Kidney failure <15 (or dialysis) 42 Normal Range 180 to 914 Indeterminate Range 145 to 180 Deficient Range <145 43 It is recognized that currently available assays for the detection of antibodies to HIV-1 and/or HIV-2 may not detect all infected individuals. HIV antibodies may be undetectable in some stages of the infection and in some clinical conditions. The performance of this assay has not been established for populations of infants or children. Assayed by Chemiluminescence Microparticle Immunoassay on the Siemens Advia Centaur CP. Values obtained with different methods or kits cannot be used interchangeably.The diagnostic specificity of the ADVIA Centaur 1/O/2 Enhanced assay in the low risk population was 99.90% (6052/6058) with a 95% confidence interval of 99.78 to 99.96%. Procedures Date CPT Code Description Status Comment 10/07/2017 19302 SC/Im Injections Completed 09/19/2017 14896 Omt 7-8 Body Regions Completed 07/30/2017 28910 Omt 7-8 Body Regions Completed 07/25/2017 21485 Omt 3 To 4 Body Regions Completed Involved 07/25/2017 97879 SC/Im Injections Completed 06/06/2017 50277 Omt 7-8 Body Regions Completed 04/18/2017 82672 Omt 7-8 Body Regions Completed 02/14/2017 09703 Omt 7-8 Body Regions Completed 12/17/2016 26373 Omt 7-8 Body Regions Completed 11/01/2016 41201 Omt 7-8 Body Regions Completed 09/13/2016 90694 Omt 7-8 Body Regions Completed 08/06/2016 71772 Omt 7-8 Body Regions Completed 07/23/2016 38002 Omt 7-8 Body Regions Completed 06/11/2016 29814 Omt 7-8 Body Regions Completed 04/30/2016 38725 Omt 7-8 Body Regions Completed 02/07/2016 44197 Omt 7-8 Body Regions Completed 12/26/2015 91786 Osteopathic Manipulative Completed Treament 5-6 Body Regions 09/26/2015 Colonoscopy Completed Document: 09/26/15 - bisi - krissy 3 years Encounters Type Date Location Provider CPT E/M Dx Office Visit 10/07/2017 4:10p [place] [address] G43.109 M54.2 Office Visit 09/19/2017 12:55p Main Office Tristin Giron D.O. 03238 M54.2 G43.109 M99.08 M99.02 M99.01 M99.05 M99.03 M99.04 M99.00 T40.2x5A R45.4 Office Visit 07/30/2017 12:55p Main Office Tristin Giron D.O. 98824 M54.2 M99.08 M99.02 M99.01 M99.05 M99.03 M99.04 M99.00 G44.201 Z79.891 Office Visit 07/25/2017 4:30p Main Office Tristin Giron D.O. 36363 M54.2 M99.01 M99.02 M99.00 G44.201 Z23 Z41.8 M50.20 Z79.891 Office Visit 06/06/2017 2:00p Main Office Tristin Giron D.O. 61587 J44.1 M50.20 M54.17 I10 M99.05 M99.03 M99.02 M99.04 M99.00 M99.08 M99.01 M54.2 Z79.891 Office Visit 04/30/2017 3:00p Main Office Tristin Giron D.O. 02279 J44.1 M50.20 J18.1 Office Visit 04/18/2017 12:55p Main Office Tristin Giron D.O. 84668 M54.17 I10 M99.05 M99.03 M99.02 M99.04 M99.00 M99.08 M99.01 Z79.891 M54.2 J44.1 Office Visit 02/14/2017 12:55p Main Office Tristin Giron D.O. 81082 I10 M54.17 M99.05 M99.03 M99.02 M99.04 M99.00 M99.08 M99.01 M50.20 Office Visit 12/17/2016 2:45p Main Office Tristin Giron D.O. 96571 I10 M54.17 M99.05 M99.03 M99.02 M99.04 M99.00 M99.08 M99.01 M50.20 Z79.891 M54.2 Z23 Office Visit 11/01/2016 1:15p Main Office Tristin Giron D.O. 73343 M54.17 M99.05 M99.03 M99.02 M99.04 M99.00 M99.08 M99.01 I10 M50.20 Z79.891 M54.2 Office Visit 09/30/2016 4:30p Main Office Tristin Giron D.O. 39705 M54.17 Office Visit 09/13/2016 2:30p Main Office Tristin Giron D.O. 02688 M99.05 M99.03 M99.02 M99.04 M99.00 M99.01 M99.08 M10.071 N40.0 I10 Z79.891 Office Visit 08/06/2016 1:45p Main Office Tristin Giron D.O. 55526 M99.05 M99.02 M99.03 M99.04 M99.00 M99.01 M99.08 M50.20 N40.0 Office Visit 07/23/2016 1:30p Main Office Tristin Giron D.O. 30928 M99.05 M99.02 M99.03 M99.04 M99.00 M99.01 M99.08 I10 Z79.891 M54.2 M54.5 Office Visit 06/11/2016 3:30p Main Office Tristin Giron D.O. 76089 M54.2 M54.5 M99.05 M99.03 M99.02 M99.04 M99.00 M99.01 M99.08 I10 J06.9 Office Visit 04/30/2016 4:45p Main Office Tristin Giron D.O. 91565 M54.2 M54.5 M99.05 M99.03 M99.02 M99.04 M99.00 M99.01 M99.08 Office Visit 02/07/2016 3:45p Main Office Tristin Giron D.O. 94986 M54.2 M54.5 M99.01 M99.00 M99.02 M99.03 M99.08 M99.05 M99.04 Office Visit 12/26/2015 3:30p Main Office Tristin Giron D.O. 23682 M99.01 R91.8 M99.00 M99.02 M99.03 M99.08 I10 R26.89 I20.9 Z23 Office Visit 10/25/2015 2:30p Main Office Tristin Giron D.O. 78449 F41.1 R26.89 J44.9 F17.210 I10 I20.9 D64.9 Office Visit 10/11/2015 3:30p Main Office Tristin Giron D.O. 85664 M54.5 M54.2 R26.89 N52.9 J44.9 Office Visit 08/23/2015 2:45p Main Office Tristin Giron D.O. 54359 F17.210 I10 M54.2 G43.109 I20.9 J44.9 E78.6 G47.00 F41.1 Office Visit 07/26/2015 3:45p Main Office Tristin Giron D.O. 99374 I10 R06.2 M54.2 G43.109 I20.9 J44.9 E78.6 G47.00 F41.1 Plan of Care Future Appointment(s):12/04/2017 12:55 pm - Tristin Giron D.O. at Main Fafkmj7010/21/2017 - Tristin Giron D.O.M54.2 CervicalgiaNew Medication: Hydrocodone-Acetaminophen 10-325 mgFollow up:as tjixzanpiT25.109 Migraine with aura, not intractable, w/o status migrainosusNew Medication:Hydrocodone- Acetaminophen 10-325 mgZ79.891 halfway (current) use of opiate cwwbydxuyG85.20 Other cervical disc displacement, unsp cervical fgzyfcO54.1 Chronic obstructive pulmonary disease w (acute) cmyiqbdwcyqpD16 Essential ( primary) pyzjrmyyzgvtL45.17 Radiculopathy, lumbosacral kcacleK54.5 Low back painS93.401A Sprain of unspecified ligament of right ankle, init encntr
--- OUTSIDE RECORDS SUMMARY | 2017-11-06 18:15 | XMS REPORT ---
:1960 External Reference #:[id number] Author Organization [facility] Address [address] [place] [address] Phone [phone] Care Team Providers Name Role Phone HCP given Primary Care Physician Unavailable Payers Type Date Identification Numbers Payment Provider Subscriber Commercial Policy Number: [id number] Carlyus Ind/Ppo/Hmo/Pos Brittaney Lewis Friday Group Number: [id number] [address] [address] PayID: [id number] [place] [id number] Problems Date Description Provider Status Onset: 07/26/2015 [...] Seat Belt Use - Yes Age 1st [place] 13 Years Old Sexual Hx text >10 partners in her lifetime. Allergies, Adverse Reactions, Alerts Date Description Reaction Status Severity Comments 07/26/2015 Imitrex active 07/26/2015 Cephalexin active nausea Medications Medication Date Status Form Strength Qnty SIG Indications Ordering Provider Oxycodone HCL Active Tablets 10mg 45tabs 1 tablets M54.2 Silcoff, 018 by mouth Lucas, up to M.D. three times a day as needed for severe pain G43.109 Meloxicam [...] 05/13/2017 Active Solution 0.5-2.5 Inhale The Unknown Perkins/Albute (3)mg/3 Contents Of 1 rol Sulfate ML [...] Tablets 20mg 270tabs 3 By Mouth M99.01 Mack, Nightly Tristin D.O. Proair HFA 08/12/2014 Active Aerosol 108(90B 8.5units 1-2 Puffs M99.01 Mack, ase) Four Times Tristin, mcg/Act A Day as D.O. Needed 4 Inhalers Of 8.5GM Each Atorvastatin Active Tablets 10mg Take One Unknown Calcium Tablet By Mouth Every Day Tramadol HCL 09/19/2017 - Hx Tablets 100mg 30tabs 1 by mouth M54.2 Sopchak, ER (Biphasic) 10/07/2017 ER 24HR every day Tristin, D.O. G43.109 Oxycodone HCL 07/25/2017 - Hx Tablets 10mg 6tabs take 1 to 2 Sopchak, 07/28/2017 tablets by Tristin, D.O. mouth every 6 hours for breakthrough pain maximum daily dose of 6 per day Prednisone 04/18/2017 - Hx Tablets 10mg 10tabs 2 tabs for [facility] 04/25/2017 days then 1 tab .1 Tristin, D.O. for 4 days Azithromycin 04/18/2017 - Hx Tablets 250mg 6tabs take 2 tablets [facility] 04[facility]2017 by mouth one .1 Tristin, D.O. time on the first day then take 1 tablet by mouth daily for 4 days Hydrocodone-Acet 10/15/2016 - Hx Tablets 10-325m 180tabs 1 tab every 4 [facility]2017 g hours as needed .2 Tristin, D.O. for severe pain G43.109 Gabapentin 09/30/2016 - Hx Capsules 100mg 90caps 1 tabs by M54.17 Mack, 12/16/2016 mouth Tristin, D.O. three times a day Oxycodone-Acet 09/30/2016 - Hx Tablets 10-325mg 120tabs 1 by mouth M54.2 Sopchak, aminophen 10/15/2016 every 8 Tristin, D.O. hours as needed G43.109 Colcrys 09/13/2016 - Hx Tablets 0.6mg 60tabs take 2 M10.071 Sopchak, 09/30/2016 immediately Tristin, then 1 1 hour D.O. later. then next day take 1 twice a day. Buspirone 10/25/2015 - Hx Tablets 7.5mg 60tabs 1 cap by M99.01 Sopchak, HCL 05/25/2016 mouth twice a Tristin, day D.O. Bupropion 10/10/2015 - Hx Tablets ER 100mg 90tabs 1 by mouth Sopzainabk, HCL ER (SR) 12/12/2015 12HR every day Tristin, D.O. Hydrocodone- 12/07/2014 - Hx Tablets 10-325mg 120tabs 1 by mouth M54.2 Sopzainabk, Acetaminophe 09/30/2016 four-5 times Tristin, n a day as D.O. needed for chronic pain G43.109 Nifedipine ER 08/12/2014 - Hx Tablets ER 90mg 90tabs 1qd-take one I10 Sopchak, Osmotic 04/05/2016 24HR tablet by Tristin, D.O. Release mouth every day Simvastatin 08/12/2014 - Hx Tablets 40mg take one E78.6 Unknown 12/12/2015 tablet by mouth every day for high cholesterol Symbicort 08/12/2014 - Hx Aerosol 160-4.5 30.6gm inhale 2 puffs M99.01 Rachelk, 04/30/2017 mcg/Act by mouth twice Tristin, D.O. a day gargle after use Wellbutrin SR 08/12/2014 - Hx Tablets ER 100mg 30tabs 1 by mouth Sopchak, 10/10/2015 12HR daily Tristin, D.O. Medications Administered in Office Medication Date Status Form Strength Qnty SIG Indications Ordering Provider Toradol 15MG. Administered Injection Hektor, MICHELLE Alegria SC/Im Administered Injection Hektor, Injections MICHELLE Alegria Toradol 15MG. Administered Injection Sopchak, 018 Matty Crow. SC/Im Administered Injection Sopchak, Injections 018 Maximo Crow Immunizations CPT Code Status Date Vaccine Lot # [id number] Given 12/17/2016 Influenza Virus Vaccine, Quadrivalent, Split, [id number] Preservative Free [id number] Given 12/26/2015 Influenza Virus Vaccine, Quadrivalent, Split, [id number] Preservative Free Vital Signs Date Vital Result Comment 10/07/2017 BP Systolic 142 mmHg BP Diastolic [...] 05/02/2017 Slide Review (SEE NOTE) 1, 2 CBS W/Automated Diff 05/02/2017 White Blood Count 12.1 K/uL High 3.4-10.5 1 Red Blood Count 4.12 M/uL Low 4.20-5.80 1 Hemoglobin 12.8 gm/dL 12.8-17.0 1 Hematocrit 39.9 % 38.0-48.0 1 Mean Cell Volume 96.8 fl High 80.0-96.0 1, 3 Mean Corpuscular HGB 31.1 pg 27.0-33.0 1 Mean Corpuscular HGB Conc 32.1 g/dL 31.7-36.0 1 Platelet Count 374 K/uL High 155-360 1 Red Cell Distri Width SD 53.1 fl High 36-51 1 Red Cell Distri Width %CV 15.4 % 11.6-15.8 1 Mean Platelet Volume 9.6 fL 6.6-10.6 1 Neut% 72.7 % 33.0-73.0 1 Lymph % 15.5 % Low 20.0-42.0 1 Steele % 10.8 % High 0.0-10.0 1 Eo% 0.9 % 0.0-6.6 1 Bas% 0.1 % 0.0-1.1 1 Neut# 8.77 K/uL High 1.8-7.0 1 Lymph # 1.87 K/uL 1.0-4.0 1 Steele # 1.30 K/uL High 0.0-0.8 1 Eos # 0.11 K/uL 0.0-0.5 1 Baso # 0.01 K/uL 0.0-0.1 1 Blood Culture 05/02/2017 Blood Culture Aerobic NO GROWTH: FINAL <SEE NOTE> 1, 4 Blood Culture Anaerobic NO GROWTH: FINAL <SEE NOTE> 1, 5 Protime 05/02/2017 Protime 11.7 seconds Low 12.0-14.4 1 Inr 0.9 0.9-1.1 1, 6 Blood Culture 05/02/2017 Blood Culture Aerobic NO GROWTH: FINAL <SEE NOTE> 1, 7 Blood Culture Anaerobic NO GROWTH: FINAL <SEE NOTE> 1, 8 Ua RFX Micro & Culture II 05/02/2017 Urine Color YELLOW Yellow 1 Urine Clarity CLEAR Clear 1 Urine Glucose - Dipstick NEGATIVE mg/dL Negative 1 Urine Bilirubin - Dipstick NEGATIVE Negative 1 Urine Ketone TRACE mg/dL High Negative 1 Urine Specific [place] 1.025 1.010-1.030 1 Urine Blood NEGATIVE Negative 1 Urine PH 6.0 Low 6.5-7.5 1 Urine Protein - Dipstick TRACE mg/dL Negative 1 Urine Urobilinogen - Dipstick 0.2 E.U./dL 0.2-1.0 1 Urine Nitrite - Dipstick NEGATIVE Negative 1 Urine Leuk Esterase NEGATIVE Negative 1 Source: URINE, CLEAN CAT <SEE NOTE> 1, 9 Comprehensive Metabolic Panel 05/02/2017 Glucose 92 mg/dL 74-106 1 BUN 25 mg/dL High 7-18 1 Creatinine 1.0 mg/dL 0.6-1.3 1 Glom Filtration Rate, Estimate >60 mL/min >60 1 If >60 mL/min >60 1, 10 BUN/Creat 25.0 ratio 1 Sodium 142 mmol/L [...] 1 Sgot/Ast 8 U/L Low 15-37 1, 11 SGPT/Alt 22 U/L 12-78 1 Alkaline Phosphatase 75 U/L 45-117 1 Lactic Acid 05/02/2017 Lactic Acid 0.9 mmol/L 0.4-1.9 1 Lab Reflex >2.0 for Sepsis? Y 1 Laboratory test finding 05/02/2017 Lipase 183 U/L 56-289 1 Ua RFX Micro & Culture II 04/29/2017 Urine Color YELLOW Yellow 12 Urine Clarity CLEAR Clear 12 Urine Glucose - Dipstick NEGATIVE mg/dL Negative 12 Urine Bilirubin - Dipstick NEGATIVE Negative 12 Urine Ketone NEGATIVE mg/dL Negative 12 Urine Specific [place] 1.025 1.010-1.030 12 Urine Blood NEGATIVE Negative [...] Lymph % 4.6 % Low 20.0-42.0 22 Steele % 9.2 % 0.0-10.0 22 Eo% 0.0 % 0.0-6.6 22 Bas% 0.1 % 0.0-1.1 22 Neut# 9.81 K/uL High 1.8-7.0 22 Lymph # 0.53 K/uL Low 1.0-4.0 22 Steele # 1.05 K/uL High 0.0-0.8 22 Eos [...] 26 Lymph % 20.5 % 20.0-42.0 26 Steele % 6.9 % 0.0-10.0 26 Eo% 1.6 % 0.0-6.6 26 Bas% 0.4 % 0.0-1.1 26 Neut# 5.40 K/uL 1.8-7.0 26 Lymph # 1.57 K/uL 1.0-4.0 26 Steele # 0.53 K/uL 0.0-0.8 26 Eos # 0.12 K/uL 0.0-0.5 26 Baso # 0.03 K/uL 0.0-0.1 26 Urine Drug Screen Inhouse 09/30/2016 Ua Cocaine - Ua Opiates - Ua Amphetamines - Urine Methanphetamines - Urine Benzodiazepines QN Egan + Urine Oxycodone QL - Laboratory test finding 09/19/2016 C Reactive Protein 1.28 mg/L < 5.00 27 Erythrocyte Sed Rate 18 mm/Hr 0-20 CBC Auto Diff 09/19/2016 White Blood Count [...] Cells % 0 Laboratory test finding 09/19/2016 Uric Acid 3.9 mg/dL Low 4.4-7.6 Laboratory test finding 07/31/2016 NT-proBNP 205.0 pg/mL High <125 28 Slide Review 07/31/2016 Slide Review (SEE NOTE) 28, 29 CBS W/Automated Diff 07/31/2016 White Blood Count [...] Lymph % 17.9 % Low 20.0-42.0 28 Steele % 7.5 % 0.0-10.0 28 Eo% 2.6 % 0.0-6.6 28 Bas% 0.3 % 0.0-1.1 28 Neut# 7.64 K/uL High 1.8-7.0 28 Lymph # 1.91 K/uL 1.0-4.0 28 Steele # 0.80 K/uL 0.0-0.8 28 Eos # 0.28 K/uL 0.0-0.5 28 Baso # 0.03 K/uL 0.0-0.1 28 Laboratory test finding 07/31/2016 CK 72 U/L 39-308 28 Troponin-I < 0.015 ng/mL 28, 30 Comprehensive Metabolic Panel 07/31/2016 Glucose 117 mg/dL High 74-106 28 BUN 9 mg/dL 7-18 28 Creatinine 1.3 mg/dL 0.6-1.3 28 Glom Filtration Rate, Estimate 60 mL/min >60 28 If >60 mL/min >60 28, 31 BUN/Creat 6.9 ratio 28 Sodium 142 mmol/L [...] 28 Sgot/Ast 8 U/L Low 15-37 28, 32 SGPT/Alt 19 U/L 12-78 28 Alkaline Phosphatase 101 U/L 45-117 28 Connective Tissue Panel 06/14/2016 Anti-Nuclear Antibody [...] 74 -106 39 Laboratory test finding 10/25/2015 Vitamin D Total 25(Oh) 34.0 ng/mL 30- 50 Comp Metabolic Panel 10/25/2015 Sodium 137 mmol/L [...] Non- 82.0 >60 Egfr 105.5 >60 40 CBC Auto Diff 10/25/2015 White Blood Count [...] 0-2 Nucleated Red Blood Cells % 0.4 Laboratory test finding 10/25/2015 Magnesium 2.1 mg/dL 1.9-2.7 Retic Count 10/25/2015 Retic Count 1.3 % 0.5-1.5 Corrected Retic Count 1.2 % 0.5-1.5 Maturation Factor Retic 1.0 Retic Index 1.20 Mean Retic Volume 116.3 Immature Retic Fraction 0.46 RBC Retic Count 4.14 10^6/uL Low 4.6-6.2 Hematocrit for Retic CNT 40 % Low 42-52 Iron & Iron Binding Capacity 10/25/2015 Iron 47 g/dL Low 50-212 Unsaturated Iron Binding 293 g/dL Total Iron Binding Capacity 340 g/dL 250-450 % Iron Saturation 14 % Low 15-55 Laboratory test finding 10/25/2015 Ferritin 41.0 ng/mL 24-336 CBC Auto Diff 08/23/2015 White Blood Count [...] 0-2 Nucleated Red Blood Cells % 0.2 Comp Metabolic Panel 08/23/2015 Sodium 138 mmol/L [...] Non- 70.7 >60 Egfr 91.0 >60 41 HIV 1/2 AB Evaluation 08/23/2015 HIV 1 2 Antibody Nonreactive Nonreactive 42 Laboratory test finding 08/23/2015 TSH (Thyroid Stim 0.53 ?IU/mL 0.34- 5.60 Horm) Vitamin B12 517 pg/mL 180-914 43 Vitamin D Total 25(Oh) 25.0 ng/mL Low 30-50 Magnesium 2.0 mg/dL 1.9-2.7 Hepatitis C Antibody Nonreactive Nonreactive 1 LOWER ABD PAIN, FEVER 2 Instrument flagged sample for slide review. Less than 10% Bands seen, no other immature WBC's seen. RBC morphology essentially normal. Platelet estimate=NORMAL 3 Result confirmed by repeat analysis. 4 NO GROWTH: FINAL REPORT 5 NO GROWTH: FINAL REPORT 6 THERAPEUTIC INR RANGE: 2.0 - 3.0 DVT, Pulmonary embolus, prophylaxis against venous thrombosis or systemic embolization in high risk patients. 2.5 - 3.5 Mechanical heart valves 7 NO GROWTH: FINAL REPORT 8 NO GROWTH: FINAL REPORT 9 URINE, CLEAN CATCH 10 Note: Persistent reduction for 3 months or more in an eGFR <60 mL/min/1.73 m2 defines CKD. Patients with eGFR values >/=60 mL/min/1.73 m2 may also have CKD if evidence of persistent proteinuria is present. The original MDRD equation for estimated GFR is not valid for patients less than 18 years of age. Additional information may be found at www.kdoqi.org. 11 Values below the stated reference ranges of AST and ALT can be seen in normal populations. Clinical correlation is suggested. 12 SEVERE ABD PAIN, HEADACHE 13 URINE, [...] influenza A and B molecular assay. Method: TechForward Chromatographic immunoassay 16 No Legionella species isolated. Performed at: [facility] [id number] [employer] Process Worker: Yeimi Lin MD, Phone: [phone] 17 Presumptive negative for L. pneumophila serogroup [...] CHEST PAIN, JAW PAIN, DIARRHEA, VOMITING 29 Instrument flagged sample for slide review. Less than 10% Bands seen, no other immature WBC's seen. RBC morphology essentially normal. Platelet estimate=NORMAL 30 0.0 - 0.045 ng/mL: Normal 0.046 - 0.5 ng/mL: Suggestive 0.6 - 1.5 ng/mL: Consistent 31 Note: Persistent reduction for 3 months or more in an eGFR <60 mL/min/1.73 m2 defines CKD. Patients with eGFR values >/=60 mL/min/1.73 m2 may also have CKD if evidence of persistent proteinuria is present. The original MDRD equation for estimated GFR is not valid for patients less than 18 years of age. Additional information may be found at www.kdoqi.org. 32 Values below the stated reference ranges of AST and ALT can be seen in normal populations. Clinical correlation is suggested. 33 REFERENCE VALUE <=1.0 (Negative) 34 REFERENCE VALUE <20.0 (Negative) 35 Tests for antibodies to dsDNA and YESSY antigens are not performed automatically unless the YARELIS result is > or= 3.0 U. Studies performed at [facility] indicate that positive YARELIS results <3.0 U are rarely accompanied by positive second order tests. Test Performed by: [facility] [place] [address] Swimming Pool Installer: Aramis Gonzalez II, M.D., Ph.D. 36 Test Performed by: [facility] [place] [address] [place] [address] Swimming Pool Installer: Aramis Gonzalez II, M.D., Ph.D. 37 Acute [...] 5 Kidney failure <15 (or dialysis) 39 Lye Machine Operator: [id number] LIZA YT 40 Because ethnic data is not always [...] 5 Kidney failure <15 (or dialysis) 42 It is recognized that currently available assays [...] 95% confidence interval of 99.78 to 99.96%. 43 Normal Range 180 to 914 Indeterminate Range 145 to 180 Deficient Range <145 Procedures Date CPT Code Description Status Comment 10/07/2017 86595 SC/Im Injections Completed 09/19/2017 47777 Omt 7-8 Body Regions Completed 07/30/2017 99184 Omt 7-8 Body Regions Completed 07/25/2017 51151 Omt 3 To 4 Body Regions Completed Involved 07/25/2017 57680 SC/Im Injections Completed 06/06/2017 02129 Omt 7-8 Body Regions Completed 04/18/2017 26366 Omt 7-8 Body Regions Completed 02/14/2017 59547 Omt 7-8 Body Regions Completed 12/17/2016 81576 Omt 7-8 Body Regions Completed 11/01/2016 36745 Omt 7-8 Body Regions Completed 09/13/2016 99069 Omt 7-8 Body Regions Completed 08/06/2016 46580 Omt 7-8 Body Regions Completed 07/23/2016 58873 Omt 7-8 Body Regions Completed 06/11/2016 52196 Omt 7-8 Body Regions Completed 04/30/2016 60766 Omt 7-8 Body Regions Completed 02/07/2016 62377 Omt 7-8 Body Regions Completed 12/26/2015 39968 Osteopathic Manipulative Completed Treament 5-6 Body Regions 09/26/2015 Colonoscopy Completed Document: 09/26/15 - bisi - krissy 3 years Encounters Type Date Location Provider CPT E/M Dx Office Visit 10/07/2017 4:10p [place] [address] G43.109 M54.2 Office Visit 09/19/2017 12:55p Main Office Tristin Giron D.O. 47704 M54.2 G43.109 M99.08 M99.02 M99.01 M99.05 M99.03 M99.04 M99.00 T40.2x5A R45.4 Office Visit 07/30/2017 12:55p Main Office Tristin Giron D.O. 61959 M54.2 M99.08 M99.02 M99.01 M99.05 M99.03 M99.04 M99.00 G44.201 Z79.891 Office Visit 07/25/2017 4:30p Main Office Tristin Giron D.O. 79987 M54.2 M99.01 M99.02 M99.00 G44.201 Z23 Z41.8 M50.20 Z79.891 Office Visit 06/06/2017 2:00p Main Office Tristin Giron D.O. 32226 J44.1 M50.20 M54.17 I10 M99.05 M99.03 M99.02 M99.04 M99.00 M99.08 M99.01 M54.2 Z79.891 Office Visit 04/30/2017 3:00p Main Office Tristin Giron D.O. 71386 J44.1 M50.20 J18.1 Office Visit 04/18/2017 12:55p Main Office Tristin Giron D.O. 42405 M54.17 I10 M99.05 M99.03 M99.02 M99.04 M99.00 M99.08 M99.01 Z79.891 M54.2 J44.1 Office Visit 02/14/2017 12:55p Main Office Tristin Giron D.O. 56372 I10 M54.17 M99.05 M99.03 M99.02 M99.04 M99.00 M99.08 M99.01 M50.20 Office Visit 12/17/2016 2:45p Main Office Tristin Giron D.O. 84025 I10 M54.17 M99.05 M99.03 M99.02 M99.04 M99.00 M99.08 M99.01 M50.20 Z79.891 M54.2 Z23 Office Visit 11/01/2016 1:15p Main Office Tristin Giron D.O. 98104 M54.17 M99.05 M99.03 M99.02 M99.04 M99.00 M99.08 M99.01 I10 M50.20 Z79.891 M54.2 Office Visit 09/30/2016 4:30p Main Office Tristin Giron D.O. 24184 M54.17 Office Visit 09/13/2016 2:30p Main Office Tristin Giron D.O. 86471 M99.05 M99.03 M99.02 M99.04 M99.00 M99.01 M99.08 M10.071 N40.0 I10 Z79.891 Office Visit 08/06/2016 1:45p Main Office Tristin Giron D.O. 22318 M99.05 M99.02 M99.03 M99.04 M99.00 M99.01 M99.08 M50.20 N40.0 Office Visit 07/23/2016 1:30p Main Office Tristin Giron D.O. 24984 M99.05 M99.02 M99.03 M99.04 M99.00 M99.01 M99.08 I10 Z79.891 M54.2 M54.5 Office Visit 06/11/2016 3:30p Main Office Tristin Giron D.O. 02018 M54.2 M54.5 M99.05 M99.03 M99.02 M99.04 M99.00 M99.01 M99.08 I10 J06.9 Office Visit 04/30/2016 4:45p Main Office Tristin Giron D.O. 89118 M54.2 M54.5 M99.05 M99.03 M99.02 M99.04 M99.00 M99.01 M99.08 Office Visit 02/07/2016 3:45p Main Office Tristin Giron D.O. 67141 M54.2 M54.5 M99.01 M99.00 M99.02 M99.03 M99.08 M99.05 M99.04 Office Visit 12/26/2015 3:30p Main Office Tristin Giron D.O. 32537 M99.01 R91.8 M99.00 M99.02 M99.03 M99.08 I10 R26.89 I20.9 Z23 Office Visit 10/25/2015 2:30p Main Office Tristin Giron D.O. 80187 F41.1 R26.89 J44.9 F17.210 I10 I20.9 D64.9 Office Visit 10/11/2015 3:30p Main Office Tristin Giron D.O. 27934 M54.5 M54.2 R26.89 N52.9 J44.9 Office Visit 08/23/2015 2:45p Main Office Tristin Giron D.O. 89832 F17.210 I10 M54.2 G43.109 I20.9 J44.9 E78.6 G47.00 F41.1 Office Visit 07/26/2015 3:45p Main Office Tristin Giron D.O. 54336 I10 R06.2 M54.2 G43.109 I20.9 J44.9 E78.6 G47.00 F41.1 Plan of Care Future Appointment(s):12/04/2017 12:55 pm - Tristin Giron D.O. at Main [id number]/21/2017 1:30 pm - Tristin Giron D.O. at Main [id number]/07/2017 - Rosanna Pérez, PAG43.109 Migraine with aura, not intractable, w/o status migrainosusNew Medication:Oxycodone HCL 10 mgComments:Toradol 60mg IM given in office today. Rx for oxycodone to replace tramadol - for migraine and neck/back pain. Recheck if sx not improving.M54.2 CervicalgiaNew Medication:Oxycodone HCL 10 mgComments:Rx for oxycodone to replace tramadol - for migraine and neck/back pain. Pt has appt w Dr. Giron on10/21. Recheck sooner if sx not improving.
[2017-11-06 18:19] VITALS: BP 142/92
[2017-11-06] MEDS ORDERED: Ketorolac INJ* 30 MG/ML 1 ML VIAL IM ONE (18:33)
--- NOTE | 2017-11-06 18:52 | UC ---
Neck Pain HPI - HPI Summary HPI Summary: 56 yo male tripped on dog leash and fell off deck occurred about a week ago seen at [facility] ER yesterday Had CT of neck DDD/spinal stenosis request 8 oxycodnes until he can see his DO on hydrocodones current; has muscle relaxer - History of Current Complaint Chief Complaint: UCTrauma Stated Complaint: NECK PAIN Time Seen by Provider: 11/06/17 18:16 Hx Obtained From: Patient Onset/Duration Of Injury/Symptoms: Days Timing: Constant Onset/Duration: Sudden Onset Severity: Severe Pain Intensity: 8 Pain Scale Used: 0-10 Numeric Character: Aching, Stiff, Spasmotic Aggravating Factors: Nothing Alleviating Factors: Nothing Associated Signs & Symptoms: Positive: Swelling - Allergies/Home Medications Allergies/Adverse Reactions: Allergies Allergy/AdvReac Type Severity Reaction Status Date / Time cephalexin Allergy GI Upset Verified 11/06/17 18:49 sumatriptan [From Imitrex] Allergy GI Upset Verified 11/06/17 18:49 PMH/Surg Hx/FS Hx/Imm Hx Previously Healthy: Yes Endocrine History: Dyslipidemia Cardiovascular History: Hypertension Respiratory History: COPD - Surgical History Surgical History: Yes Surgery Procedure, Year, and Place: SHOULDER/ROTATOR CUFF SURGERY-right. Knee surgery age 16 - Family History Known Family History: Positive: Hypertension - Social History Alcohol Use: None Substance Use Type: None Smoking Status (MU): Heavy Every Day Tobacco Smoker Type: Cigarettes Amount Used/How Often: 1 pack per day Length of Time of Smoking/Using Tobacco: 40 years Have You Smoked in the Last Year: Yes Household Exposure Type: Cigarettes - Immunization History Most Recent Influenza Vaccination: never Most Recent Tetanus Shot: has had Most Recent Pneumonia Vaccination: 2013 Review Of Systems Constitutional: Positive: Negative Skin: Positive: Negative Eyes: Positive: Negative ENT: Positive: Negative Respiratory: Positive: Negative Cardiovascular: Positive: Negative Gastrointestinal: Positive: Negative Genitourinary: Positive: Negative Musculoskeletal: Positive: Myalgia Neurological: Positive: Headache All Other Systems Reviewed And Are Negative: Yes Physical Exam Triage Information Reviewed: Yes Appearance: Well-Appearing, No Pain Distress, Well-Nourished Vital Signs: Initial Vital Signs Temp 98.4 F 11/06/17 18:13 Pulse 75 11/06/17 18:13 Resp 20 11/06/17 18:13 BP 142/92 11/06/17 18:13 Pulse Ox 97 11/06/17 18:13 Vital Signs Reviewed: Yes Eyes: Positive: Conjunctiva Clear Neck: Positive: Tenderness @ - bilateral traps. Negative: Supple Respiratory: Positive: Lungs clear, Normal breath sounds, No respiratory distress, No accessory muscle use Cardiovascular: Positive: RRR Musculoskeletal: Positive: ROM Intact, No Edema Neurological: Positive: Alert, Muscle Tone Normal, Other: - non focal exam Neck Pain Course/Dx - Differential Dx/Diagnosis Provider Diagnoses: cervical strain. DDD by history. Cervical stenosis by history Discharge - Sign-Out/Discharge Documenting (check all that apply): Patient Departure - Discharge Plan Condition: Stable Disposition: HOME Prescriptions: oxyCODONE/Acetamin 5/325 MG* [Percocet 5/325 TAB*] 1 tab PO Q4H PRN #8 tab MDD 6 PRN Reason: Pain Patient Education Materials: Cervical Strain (ED), Soft Cervical Collar (ED), Cervical Spinal Stenosis (ED), Degenerative Disc Disease (ED) Referrals: Tristin Giron DO [Primary Care Provider] - As Soon As Possible Additional Instructions: don't take hydrocodones while taking oxycodone wear soft collar when up see your Provider firsrt available appt - Billing Disposition and Condition Condition: STABLE Disposition: Home
== END 2017-11-06 19:02 | disposition home or self-care (01) ==
LOC: UCCORT 18:01
DX: S16.1XXA Strain of muscle, fascia and tendon at neck level, initial encounter (principal); W17.89XA Other fall from one level to another, initial encounter; Y93.9 Activity, unspecified; Y99.9 Unspecified external cause status; F17.210 Nicotine dependence, cigarettes, uncomplicated; E78.5 Hyperlipidemia, unspecified; J44.9 Chronic obstructive pulmonary disease, unspecified
CPT/HCPCS: 96372; 99213; G0463; J1885

== ENCOUNTER 2017-11-08 18:06 | Emergency (ER) | payer BC, MEDICARE ==
[2017-11-08 18:51] VITALS: BP 136/77
[2017-11-08] MEDS ORDERED: predniSONE TAB* 20 MG PO ONE (19:36)
--- NOTE | 2017-11-08 19:45 | UC ---
Neck Pain HPI - HPI Summary HPI Summary: Patient presents complaining of ongoing pain in his neck. He reports a history of chronic head, neck and back pain for which he is under the care of his primary care provider. He was seen here on the of this month and given 8 Percocet tablets for breakthrough pain post fall. Prior to that he had been seen at the [facility] ER after that fall where he had a CT and was prescribed Motrin plus he is on hydrocodone routinely and has Ativan as well. The primary reason for his visit today is that he has not gotten relief with his Percocet and was requesting more. He has not had another injury since his last visit here. He has no numbness tingling or weakness to his arms or legs. He has no associated fever or saddle anesthesia. In his prior visit here there was some documentation about the spinal stenosis. He states he had not yet followed up with his primary care because he is on vacation. - History of Current Complaint Chief Complaint: UCMedRefill Stated Complaint: RECHECK BACK PAIN Time Seen by Provider: 11/08/17 19:18 Hx Obtained From: Patient Timing: Constant Pain Intensity: 8 Aggravating Factors: Movement Alleviating Factors: Nothing Associated Signs & Symptoms: Negative: Fever, Weakness, Paresthesia - Allergies/Home Medications Allergies/Adverse Reactions: Allergies Allergy/AdvReac Type Severity Reaction Status Date / Time cephalexin Allergy GI Upset Verified 11/08/17 18:42 sumatriptan [From Imitrex] Allergy GI Upset Verified 11/08/17 18:42 Home Medications: Home Medications Albuterol 2.5MG/3ML (0.083%)* [Ventolin 2.5 MG/3 ML NEB.LACEY*] 2.5 mg INH Q6H PRN 11/08/17 [History Confirmed 11/08/17] Ketorolac INJ* [Toradol INJ*] 60 mg IM ONCE 11/08/17 [History Confirmed 11/08/17 ] Multivitamin [Multivitamins] 1 cap PO DAILY 11/08/17 [History Confirmed 11/08/17 ] PMH/Surg Hx/FS Hx/Imm Hx - Additional Past Medical History Additional PMH: Chronic head, neck and back pain Endocrine History: Dyslipidemia Cardiovascular History: Cardiac Disease, Hypertension Respiratory History: COPD - Surgical History Surgical History: Yes Surgery Procedure, Year, and Place: SHOULDER/ROTATOR CUFF SURGERY-right. Knee surgery age 16 - Family History Known Family History: Positive: Hypertension - Social History Lives: With Family Alcohol Use: None Substance Use Type: None Smoking Status (MU): Heavy Every Day Tobacco Smoker Type: Cigarettes Amount Used/How Often: 1 pack per day Length of Time of Smoking/Using Tobacco: 40 years Have You Smoked in the Last Year: Yes Household Exposure Type: Cigarettes - Immunization History Most Recent Influenza Vaccination: never Most Recent Tetanus Shot: has had Most Recent Pneumonia Vaccination: 2013 Vaccination Up to Date: Yes Review Of Systems Constitutional: Positive: Negative Skin: Positive: Negative Eyes: Positive: Negative ENT: Positive: Negative Respiratory: Positive: Negative Cardiovascular: Positive: Negative Gastrointestinal: Positive: Negative Genitourinary: Positive: Negative Musculoskeletal: Positive: Other: - neck pain Neurological: Positive: Negative Psychological: Positive: Negative All Other Systems Reviewed And Are Negative: Yes Physical Exam Triage Information Reviewed: Yes Appearance: Well-Appearing Vital Signs: Initial Vital Signs Temp 97.7 F 11/08/17 18:47 Pulse 73 11/08/17 18:47 Resp 18 11/08/17 18:47 BP 136/77 11/08/17 18:47 Pulse Ox 96 11/08/17 18:47 Vital Signs Reviewed: Yes Eyes: Positive: Conjunctiva Clear ENT: Positive: Pharynx normal, TMs normal. Negative: Nasal congestion, Nasal drainage Neck: Positive: Other: - soft c-collar removed. No gross deformity swelling or discoloration. Cervical thoracic and lumbar spinous processes are nontender to palpation paraspinal muscles in the cervical region and diffusely tender. Range of motion is intact but slow. Soft cervical collar returned. Respiratory: Positive: Lungs clear, Normal breath sounds Cardiovascular: Positive: RRR, No Murmur Abdomen Description: Positive: Nontender, No Organomegaly, Soft Bowel Sounds: Positive: Present Musculoskeletal: Positive: ROM Intact Neurological: Positive: Alert, Other: - 5 out of 5 strength, 2+ reflexes 4 are intact. No saddle anesthesia. Normal steady gait. Psychological Exam: Normal Skin Exam: Normal Neck Pain Course/Dx - Course Course Of Treatment: Prior visit reviewed. [facility] site accessed. From this urgent care, patient received prescription for 8 Percocet. Prior to that on October 21 he received 120 tablets of lorazepam 1 mg and 180 tablets of 10 mg hydrocodone. It is clear that his pain is not responding to narcotics. Rather than refill the Percocet, and going to prescribe a steroid. Again, I stressed to the patient that additional pain medication needs to come from his primary care and that he should contact them first thing Friday morning. Even if his physician is on vacation, he can be seen by another provider within the practice. Is no concern for infection, acute chest pathology, cauda equina and per prior visits cervical fracture was excluded on CT after the injury which caused the acute flare of his chronic pain. - Differential Dx/Diagnosis Provider Diagnoses: Acute flare of chronic neck pain post fall Discharge - Sign-Out/Discharge Documenting (check all that apply): Patient Departure - Discharge Plan Condition: Stable Disposition: HOME Prescriptions: methylPREDNISolone [Medrol Dosepak 4 MG*] 0 mg PO .SEE ANISHA INSTRUCTION #1 tab Patient Education Materials: Neck Pain (ED), Cervical Spinal Stenosis (ED) Referrals: Tristin Giron DO [Primary Care Provider] - 2 Days - Billing Disposition and Condition Condition: STABLE Disposition: Home
== END 2017-11-08 19:44 | disposition home or self-care (01) ==
LOC: UCCORT 18:06
DX: G89.29 Other chronic pain (principal); M54.2 Cervicalgia; I10 Essential (primary) hypertension; F17.210 Nicotine dependence, cigarettes, uncomplicated
CPT/HCPCS: 99212; G0463; J7512